=== PATIENT | male | born 1970 | race Caucasian/White ===

== ENCOUNTER 2017-01-06 09:07 | Inpatient (IN) | payer OTHER ==
[2017-01-05 15:30] VITALS: BMI 32.0
[2017-01-06] VITALS (28 sets, daily range): BP systolic 107–147; BP diastolic 58–87; PULSE 73–112; RESP 12–22; Ht 170.2 cm; Wt 88.0 kg
[~2017-01-06] VITALS: Ht 170.2 cm; Wt 88.0 kg
[~2017-01-06 09:07] MED LIST: CEFAZOLIN 1 GM/50 ML (PMX) 50 ML IVPB SCH; metroNIDAZOLE 500 MG/NS (PMX) 100 ML IVPB ONE
[2017-01-06] MEDS ORDERED: LIDOCAINE 2% (SDV) 5 ML INJ ONE (10:57)
[2017-01-06] MEDS ORDERED: PROPOFOL 20 ML ONE (10:57)
[2017-01-06] MEDS ORDERED: morphine SULFATE/PF (10 MG/10 ML) INJ ONE (10:57)
[2017-01-06] MEDS ORDERED: MIDAZOLAM 1 MG/ML 2 ML INJ ONE (11:08)
[2017-01-06] MEDS ORDERED: LIDOCAINE 1% (MDV) 20 ML INJ ONE (11:49)
[2017-01-06] MEDS ORDERED: BUPIVACAINE 0.5%/EPI (SDV) 30 ML INJ INJ ONE (12:08)
[2017-01-06] MEDS ORDERED: THROMBIN 5000 UNIT VIAL ONE (13:16)
[2017-01-06] MEDS ORDERED: DEXAMETHASONE 4 MG/ML 1 ML INJ ONE (13:53)
[2017-01-06] MEDS ORDERED: ONDANSETRON 4 MG INJ ONE (13:53)
[2017-01-06] MEDS ORDERED: NALOXONE (0.4 MG/ML) INJ IV PRN (16:00)
[2017-01-06] MEDS ORDERED: FENTAnyl 50 MCG/ML VIAL IV PRN ×3 (16:00)
[2017-01-06] MEDS ORDERED: HYDROmorphONE (0.2 MG/ML) 10ML SYG IV PRN ×3 (16:00)
[2017-01-06] MEDS ORDERED: EPHEDrine SULFATE 50 MG/5 ML SYG IV PRN (16:00)
[2017-01-06] MEDS ORDERED: ONDANSETRON 4 MG INJ IV PRN ×2 (16:00→17:00)
[2017-01-06] MEDS ORDERED: hydrALAzine 20 MG INJ IV PRN (16:00)
[2017-01-06] MEDS ORDERED: METOCLOPRAMIDE 10 MG INJ IV PRN (16:00)
[2017-01-06] MEDS ORDERED: MEPERIDINE 25 MG INJ IV PRN (16:00)
[2017-01-06] MEDS ORDERED: HYDROmorphONE 1 MG/ML SYG IV PRN ×3 (16:00→17:00)
[2017-01-06] MEDS ORDERED: HYDROCODONE/APAP (5/325) TAB PO PRN (16:00)
[2017-01-06] MEDS ORDERED: DIPHENHYDRAMINE 50 MG INJ IV PRN ×2 (16:00)
[2017-01-06] MEDS ORDERED: LABETALOL HCL 20MG INJ IV PRN (16:00)
--- NOTE | 2017-01-06 16:07 | HPN ---
Date/Time of Note Date/Time of Note DATE: 01/06/17 TIME: 16:07 Interval H&P Admission Note Pt. seen H&P reviewed: No system changes CONRAD TUCKER MD Jan 06, 2017 16:07
[2017-01-06 16:35] LABS: ADD UMIC YES; URINE BILIRUBIN (Dip) NEGATIVE (NEGATIVE); URINE BLOOD (Dip) NEGATIVE (NEGATIVE); URINE COLOR LT. YELLOW (YELLOW); URINE GLUCOSE (Dip) NEGATIVE (NEGATIVE); URINE KETONES (Dip) NEGATIVE (NEGATIVE); URINE LEUKOCYTE ESTERASE (Dip) NEGATIVE (NEGATIVE); URINE NITRITE (Dip) NEGATIVE (NEGATIVE); URINE TOTAL PROTEIN (Dip) 2+ (NEGATIVE); URINE UROBILINOGEN (Dip) 0.2 E.U./dL (0.1-1.0)
--- NOTE | 2017-01-06 16:35 | OPR ---
Date/Time of Note Date/Time of Note DATE: 01/06/17 TIME: 16:13 Operative Report Procedure Date: Jan 06, 2017 Preoperative Diagnosis 1. Hx of open appendectomy 2. Recent microperforation of cecum/?stump appendicitis with abscess Postoperative Diagnosis 1. Hx of open appendectomy 2. Recent microperforation of cecum/?stump appendicitis with abscess with significant inflammation and scarring of distal ileum and cecum Operation Performed 1. Laparoscopic ileo-right colectomy 2. Drainage of abdominal/intra-loop abscess 3. Mobilization of hepatic flexure, laparoscopic 4. Extensive lysis of adhesions, laparoscopic 5. Local anesthetic [place], [id number] 6. Laparoscopic guided transversus abdominis plane block 7. Laparoscopic implantation of xenograft biologic over the anastomosis for improved healing 8. Difficult operation, modifier 22 Surgeon: CONRAD TUCKER MD Bag Worker: Naye FLANAGAN Procedure Description Anesthesia: General, local, & regional Anesthesiologist: Dr. Reeves Estimated Blood Loss: 100 ml's Specimens: Right colon and terminal ileum Tubes/Drains: ACell, 7 x 10 cm, 3 layer Complications: None Pt Condition Post Procedure: stable Disposition: PACU Indications: 46-year-old male with history of open appendectomy years ago. Patient recently was admitted to [place] with abdominal pain and was found to have perforation with abscess at the Cecum, possible stump appendicitis. He was treated with antibiotic and discharged home. He presented to me in the office with this finding and was scheduled for surgical intervention. Risks include but are not limited to bleeding, infection, abscess, seroma, leak , damage to intestines or any intra-abdominal/intrapelvic structures, hernia formation, chronic pain, need for re-operations or further surgeries, GA, stroke , PE, DVT, pneumonia, organ failures, or even . Procedure Description: Patient was brought in, placed supine on the operating table, SCDs were placed, and preoperative antibiotics administered. After induction of anesthesia, all pressure points were well-padded and timeout was performed. Local anesthetic was injected at all surgical sites. Incision was made in the left upper quadrant and using an Optiview 12 mm port and the 5 mm 0 scope abdomen was entered and insufflated to 15 mmHg with CO2. Laparoscopy with a 5 mm 30 scope did not identify any injuries. Under direct visualization 5 mm ports were placed in left lower quadrant and a gel point port in the lower mid abdomen. Laparoscopic bilateral transversus abdominis plane block was performed under laparoscopic visualization to aid with pain control intra-and postoperatively. Patient was placed in Trendelenburg and right side up. There was a peak inflammatory area of small bowel mostly distal ileum to the right colon. There was significant adhesions. It took a very long time to meticulously dissect these however this identified an abscess in between this conglomerate intestines. The abscess was drained and sent for culture. Due to the significant inflammation and possible fistulization between the bowels decision was made to resect the distal ileum and right colon. The right colon was mobilized off of the abdominal wall using scissors with complete hemostasis. They the peritoneum on the medial aspect of the proximal colon and transverse colon was mobilized as well using electrocautery. I was able to mobilize the transverse colon off of the stomach and the liver. The hepatic flexure was taken down using LigaSure as well fully mobilizing the right and transverse colon. The small bowel was transected bilateral foot and 1/2-2 feet proximal to the ileocecal valve and then the right colon was transected and the distal right colon. The mesentery was sequentially taken with LigaSure with care taken to preserve the vessels. The specimen was fully resected and placed in pelvis. The mid ileum was placed [id number] along the distal ascending colon and stay sutures were placed using 2-0 silk sutures. Enterotomies were created in both structures and 2 firings of echelon 60 blue loads were used to create the anastomosis. Crotch stitch was placed 2 using same silk suture. The open end of the anastomosis was stapled using the same echelon stapler. The staple line was reinforced with the 2-0 silk Lembert suture in a running fashion. The mesenteric defect was closed with 2-0 silk in a running fashion. To allow improved healing of the anastomosis, 7 x 10 cm 3 layer ACell, xenograft biologic sheet was placed over the anastomosis. Omentum was pulled over the anastomosis. At the hepatic flexure there was some oozing and FloSeal was placed over the area to control and help with hemostasis. There was complete hemostasis. This specimen was extracted through the gel point port site and sent to pathology. Peritoneum was closed with 3-0 Vicryl suture in a running fashion. The fascia was approximated using multiple #1 Vicryl suture in [id number] interrupted fashion. Subcutaneous tissue was closed in a running fashion with 2-0 Vicryl followed by 4-0 Monocryl subcuticular closure of the skin. Between each layer the wound was fully irrigated and completely hemostatic. Abdomen was re-insufflated was no bleeding and the anastomosis was laying comfortably. Ports and CO2 were removed under direct visualization. Wounds were thoroughly irrigated and skin was closed with 4-0 Monocryl in subcuticular fashion. Dermabond was applied. Patient was extubated and transferred to recovery room in stable condition. All counts were correct and the end of the operation 2. Copies To: CC: ELIANA CUETO MD; ETHAN SABA MD, SAMUEL MD Jan 06, 2017 16:32
[2017-01-06 16:46] LABS: BACTERIA,URINE MODERATE; TRANSITIONAL EPI CELLS,URINE FEW; URINE RBCS 0-2 /HPF (0)
[2017-01-06] MEDS ORDERED: CEFTRIAXONE 1 GM/50 ML (PMX) 50 ML IVPB ONE (17:00)
[2017-01-06] MEDS: metroNIDAZOLE 500 MG/NS (PMX) 100 ML IVPB SCH (18:15)
--- NOTE | 2017-01-06 18:21 | QN ---
Documentation Comment [id number] ETHAN SABA MD Jan 06, 2017 18:21
[2017-01-06] MEDS: D5W-0.45 NACL + KCL 20 MEQ 1,000 ML IV SCH (20:33)
[2017-01-06] MEDS: ONDANSETRON 4 MG INJ IV PRN (22:05)
[2017-01-07 00:14] VITALS: BP 124/71; RESP 18
[2017-01-07] MEDS: metroNIDAZOLE 500 MG/NS (PMX) 100 ML IVPB SCH ×2 (01:02→08:20)
[2017-01-07] MEDS: D5W-0.45 NACL + KCL 20 MEQ 1,000 ML IV SCH ×3 (02:35→16:25)
[2017-01-07] MEDS: PANTOPRAZOLE (EC) 40 MG TAB PO SCH (05:42)
[2017-01-07 06:11] LABS: ADD SCAN DIFF NO
[2017-01-07] MEDS: HYDROCODONE/APAP (5/325) TAB PO PRN ×2 (06:16→20:23)
[2017-01-07] MEDS: ONDANSETRON 4 MG INJ IV PRN (06:17)
[2017-01-07 06:31] LABS: BASOPHILS % 0.1 % (0.0-2.0); HEMATOCRIT 40.9 % (42.0-52.0); LYMPHOCYTES # 1.7 10^3/ul (0.8-2.9); LYMPHOCYTES % 14.4 % (15.0-51.0); MEAN CORPUSCULAR HEMOGLOBIN 30.1 pg (29.0-33.0); MEAN CORPUSCULAR HGB CONC 34.2 g/dl (32.0-37.0); MEAN PLATELET VOLUME 10.7 fl (7.4-10.4); MONOCYTE # 0.8 10^3/ul (0.3-0.9); MONOCYTES % 7.1 % (0.0-11.0); NEUTROPHIL # 9.2 10^3/ul (1.6-7.5); PLATELET COUNT 263 10^3/UL (140-415); RED BLOOD COUNT 4.65 10^6/ul (4.70-6.10); RED CELL DISTRIBUTION WIDTH 11.9 % (11.5-14.5); WHITE BLOOD COUNT 11.8 10^3/ul (4.8-10.8)
[2017-01-07] MEDS: ENOXAPARIN 40 MG/0.4 ML SYG SC SCH (06:39)
[2017-01-07 06:53] LABS: ALBUMIN 3.6 g/dl (3.3-4.9)
[2017-01-07 06:54] LABS: POTASSIUM 4.1 mmol/L (3.5-5.1)
[2017-01-07 06:56] LABS: BILIRUBIN,INDIRECT 0.5 mg/dl (0-1.1); BILIRUBIN,TOTAL 0.5 mg/dl (0.2-1.3); CREATININE 0.77 mg/dl (0.61-1.24); TOTAL PROTEIN 7.2 g/dl (6.1-8.1)
[2017-01-07 06:57] LABS: CALCIUM 8.7 mg/dl (8.4-10.2)
[2017-01-07 07:00] VITALS: BP 108/60; RESP 20
--- NOTE | 2017-01-07 07:00 | CONS ---
DATE OF ADMISSION: 01/06/2017 DATE OF CONSULTATION: 01/06/2017 TYPE OF CONSULTATION: INTERNAL MEDICINE CONSULTATION HISTORY OF PRESENT ILLNESS: The patient with no significant past medical history except the patient has a history of abdominal pain, underwent a history of open appendectomy. The patient has history of recent microperforation of cecum, stump appendicitis with abscess. Underwent laparoscopic right colectomy and drainage of the abdominal and intra-loop abscess, mobilization of the hepatic flexure, extensive lysis of adhesions, local anesthetic injections, laparoscopic guided transvenous abdominal anastomosis improved healing and the patient is being seen post-surgery in the recovery room, is feeling better. PAST MEDICAL HISTORY: . ALLERGY HISTORY: NEGATIVE. FAMILY HISTORY: Negative. SOCIAL HISTORY: Negative. MEDICATIONS AT HOME: The patient was on antibiotic at home. CURRENT: 1. The patient is on Shell. 2. Benadryl. 3. Lovenox. 4. pain meds. 5. Fentanyl. 6. Hydromorphone. 7. Labetalol. 8. Demerol. 9. Reglan. 10. Flagyl. REVIEW OF SYSTEMS: HEENT: Unremarkable. RESPIRATORY: Unremarkable. CARDIOVASCULAR: Unremarkable. ABDOMEN: Complaining of postop pain. EXTREMITIES: Unremarkable. CENTRAL NERVOUS SYSTEM: Unremarkable. PHYSICAL EXAMINATION: GENERAL: The patient is awake, alert. VITAL SIGNS: Stable with pulse of 100, blood pressure /66. HEENT: Head is atraumatic, normocephalic. Pupils equal, reactive. NECK: Supple, no JVD. LUNGS: Clear. CARDIOVASCULAR: S1, S2 normal. ABDOMEN: Soft, tender on palpation. Bowel sounds are absent. EXTREMITIES: No cyanosis, clubbing, edema. CENTRAL NERVOUS SYSTEM: The patient is awake, alert, no focal deficit. LABORATORY DATA: Not available . IMPRESSION: The patient has a laparoscopic _ right colectomy, history of appendectomy. PLAN: Is to follow recommendation from Dr. Wilmar Tucker. Laboratory data will be checked and DVT prophylaxis. The patient will have pain medication, incentive spirometry. Thank you Dr. Tucker for kindly asking me to see this patient in internal medicine consultation. Dictated By: ETHAN SABA MD BS/NTS Conf#: [id number] DID#: [id number] CC: ETHAN SABA MD; CONRAD TUCKER MD;*EndCC* MTDD
[2017-01-07 13:18] LABS: ADD UMIC NO; URINE BILIRUBIN (Dip) NEGATIVE (NEGATIVE); URINE BLOOD (Dip) NEGATIVE (NEGATIVE); URINE COLOR LT. YELLOW (YELLOW); URINE GLUCOSE (Dip) NEGATIVE (NEGATIVE); URINE KETONES (Dip) NEGATIVE (NEGATIVE); URINE LEUKOCYTE ESTERASE (Dip) NEGATIVE (NEGATIVE); URINE NITRITE (Dip) NEGATIVE (NEGATIVE); URINE TOTAL PROTEIN (Dip) NEGATIVE (NEGATIVE); URINE UROBILINOGEN (Dip) 0.2 E.U./dL (0.1-1.0)
--- NOTE | 2017-01-07 14:18 | CONS ---
Date/Time of Note Date/Time of Note DATE: 01/07/17 TIME: 14:16 Assessment/Plan Assessment/Plan Chief Complaint/Hosp Course 1. s/p Laparoscopic ileo-right colectomy 2. s/p Drainage of abdominal/intra-loop abscess Problems: Additional Assessment/Plan 1. Continue a/b 2. Spirometry 3. Pt was up 4. Cont NPO Consultation Date/Type/Reason Admit Date/Time Jan 06, 2017 at 09:07 Initial Consult Date 01/06/2017 Type of Consultation: Nephrology Reason for Consultation Dr Cardoza 24 HR Interval Summary Constitutional: improved Exam/Review of Systems Vital Signs Vitals Vital Signs Date Time Temp Pulse Resp B/P Pulse Ox O2 Delivery O2 Flow Rate FiO2 01/07/17 07:00 98.7 78 20 108/60 97 01/06/17 22:45 Nasal Cannula 01/06/17 16:00 6.0 Intake and Output 01/06/17 01/06/17 01/07/17 15:00 23:00 07:00 Intake Total 2100 ml 1100 ml Output Total 250 ml 800 ml 1000 ml Balance 1850 ml -800 ml 100 ml Exam Constitutional: alert, oriented Eyes: nl conjunctiva Respiratory: clear to auscultation Cardiovascular: regular rate and rhythm Gastrointestinal: soft, surgical scars Genitourinary - Male: nl penis Musculoskeletal: nl extremities to inspection Results Result Diagram: 01/07/17 0454 01/07/17 0459 Results 24 hrs Laboratory Tests Test 01/06/17 15:55 01/07/17 04:54 01/07/17 04:59 01/07/17 06:00 Urine Color LT. YELLOW LT. YELLOW Urine Clarity CLOUDY H CLEAR Urine pH 6.0 5.5 Urine Specific Purdy 1.025 1.020 Urine Ketones NEGATIVE NEGATIVE Urine Nitrite NEGATIVE NEGATIVE Urine Bilirubin NEGATIVE NEGATIVE Urine Urobilinogen 0.2 E.U./dL 0.2 E.U./dL Urine Leukocyte Esterase NEGATIVE NEGATIVE Urine Microscopic RBC 0-2 Urine Microscopic WBC 2-5 Urine Transitional Epithelial Cells FEW Urine Amorphous Urates MANY Urine Bacteria MODERATE Urine Hyaline Casts OCCASIONAL Urine Coarse Granular Casts FEW Urine Hemoglobin NEGATIVE NEGATIVE Urine Glucose NEGATIVE NEGATIVE Urine Total Protein 2+ H NEGATIVE White Blood Count 11.8 H Red Blood Count 4.65 L Hemoglobin 14.0 Hematocrit 40.9 L Mean Corpuscular Volume 88.0 Mean Corpuscular Hemoglobin 30.1 Mean Corpuscular Hemoglobin Concent 34.2 Red Cell Distribution Width 11.9 Platelet Count 263 Mean Platelet Volume 10.7 H Neutrophils % 78.0 H Lymphocytes % 14.4 L Monocytes % 7.1 Eosinophils % 0.0 Basophils % 0.1 Nucleated Red Blood Cells % 0.0 Neutrophils # 9.2 H Lymphocytes # 1.7 Monocytes # 0.8 Eosinophils # 0.0 Basophils # 0.0 Nucleated Red Blood Cells # 0.0 Sodium Level 138 Potassium Level 4.1 Chloride Level 100 Carbon Dioxide Level 26 Anion Gap 16 Blood Urea Nitrogen 13 Creatinine 0.77 Glucose Level 134 Calcium Level 8.7 Total Bilirubin 0.5 Direct Bilirubin 0.00 Indirect Bilirubin 0.5 Aspartate Amino Transf (AST/SGOT) 38 Alanine Aminotransferase (ALT/SGPT) 34 Alkaline Phosphatase 47 Total Protein 7.2 Albumin 3.6 Globulin 3.60 H Albumin/Globulin Ratio 1.00 Medications Medications Current Medications Metronidazole (Flagyl 500 Mg (Pmx)) 100 ml @ 100 mls/hr Q8H IVPB Last administered on 01/07/17 08:20; Admin Dose 100 MLS/HR; Start 01/06/17 at 17:00 ; Stop 01/07/17 at 16:59 Ondansetron HCl (Zofran Inj) 4 mg Q6H PRN IV NAUSEA AND/OR VOMITING; Start at 17:00 Pantoprazole 40 mg 40 mg DAILY@06 PO ; Start 01/07/17 at 06:00 Potassium Chloride/Dextrose/ Sod Cl (D5-1/2ns + KCl 20 Meq) 1,000 ml @ 100 mls/ hr Q10H IV Last administered on 01/07/17 06:01; Admin Dose 100 MLS/HR; Start 01/06/17 at 16:35 Enoxaparin Sodium (Lovenox) 40 mg DAILY@07 SC Last administered on 01/07/17 06 :39; Admin Dose 40 MG; Start 01/07/17 at 07:00 Acetaminophen/ Hydrocodone Bitart ([place] (5/325)) 2 tab Q4H PRN PO Pain 6-10; Start 01/06/17 at 17:00 Acetaminophen/ Hydrocodone Bitart ([place] (5/325)) 1 tab Q4H PRN PO Pain 1-5 Last administered on 01/07/17 06:16; Admin Dose 1 TAB; Start 01/06/17 at 17:00 Hydromorphone HCl (Dilaudid) 0.5 mg Q2 PRN IV Breakthrough PAIN Last administered on 01/07/17 01:02; Admin Dose 0.5 MG; Start 01/06/17 at 17:00 JOHN SURESH Jan 07, 2017 14:18
[2017-01-07 17:28] VITALS: BP 127/63; PULSE 94; RESP 18
--- NOTE | 2017-01-07 17:49 | PN ---
Date/Time of Note Date/Time of Note DATE: 01/07/17 TIME: 17:45 Assessment/Plan Lines/Catheters IV Catheter Type (from [facility]): Peripheral IV [facility] in Place (from [facility]): No Assessment/Plan Chief Complaint/Hosp Course 1. 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 Paralytic ileus -oob/ambulate -chew gum -will start liquids 3. Mild leukocytosis probably reactive -monitor 4. Varicose veins -compression stockings -ambulate Thank you, Problems: Subjective 24 Hr Interval Summary Min pain. No f/c. No n/v. No cp/sob. No cough. No chamberlain/dizzy/visual or neuro changes. No dysuria. Exam/Review of Systems Vital Signs Vitals Vital Signs Date Time Temp Pulse Resp B/P Pulse Ox O2 Delivery O2 Flow Rate FiO2 01/07/17 17:28 99.0 94 18 127/63 95 Room Air 01/06/17 16:00 6.0 Intake and Output 01/06/17 01/06/17 01/07/17 15:00 23:00 07:00 Intake Total 2100 ml 1100 ml Output Total 250 ml 800 ml 1000 ml Balance 1850 ml -800 ml 100 ml Exam Constitutional: alert, oriented, No distress Psych: nl mood/affect, No anxiety Head: atraumatic, normocephalic Eyes: EOMI, PERRL, nl conjunctiva, No icteric ENMT: mucosa pink and moist, nl external ears & nose, nl lips & teeth Neck: non-tender, supple, No jvd Respiratory: normal air movement, No congested cough, No labored breathing Cardiovascular: regular rate and rhythm, No edema Gastrointestinal: soft, tender (min), No rebound or guarding Musculoskeletal: nl extremities to inspection, No joint tenderness Extremities: normal pulses, No calf tenderness, No cyanosis Neurological: nl mental status, nl speech, nl strength Skin: nl turgor, No diaphoresis, No rash or lesions Lymph: nl lymph nodes Results Result Diagram: 01/07/17 0454 01/07/17 0459 CONRAD TUCKER MD Jan 07, 2017 17:48
[2017-01-07 20:19] VITALS: BP 136/70; RESP 19
[2017-01-08] MEDS: HYDROCODONE/APAP (5/325) TAB PO PRN ×4 (00:42→18:14)
[2017-01-08] MEDS: D5W-0.45 NACL + KCL 20 MEQ 1,000 ML IV SCH ×4 (02:10→18:16)
[2017-01-08 05:45] LABS: ADD SCAN DIFF NO
[2017-01-08 06:01] LABS: BASOPHILS % 0.1 % (0.0-2.0); EOSINOPHILS % 0.2 % (0.0-7.0); HEMATOCRIT 39.8 % (42.0-52.0); HEMOGLOBIN 13.7 g/dl (14.0-18.0); LYMPHOCYTES # 1.7 10^3/ul (0.8-2.9); LYMPHOCYTES % 13.3 % (15.0-51.0); MEAN CORPUSCULAR HEMOGLOBIN 30.4 pg (29.0-33.0); MEAN CORPUSCULAR HGB CONC 34.4 g/dl (32.0-37.0); MEAN CORPUSCULAR VOLUME 88.2 fl (82.0-101.0); MEAN PLATELET VOLUME 10.7 fl (7.4-10.4); MONOCYTE # 0.9 10^3/ul (0.3-0.9); MONOCYTES % 6.9 % (0.0-11.0); NEUTROPHIL # 10.2 10^3/ul (1.6-7.5); NEUTROPHILS % 78.7 % (39.0-77.0); PLATELET COUNT 243 10^3/UL (140-415); RED BLOOD COUNT 4.51 10^6/ul (4.70-6.10); RED CELL DISTRIBUTION WIDTH 12.1 % (11.5-14.5)
[2017-01-08] MEDS: PANTOPRAZOLE (EC) 40 MG TAB PO SCH (06:10)
[2017-01-08 06:12] LABS: CALCIUM 8.6 mg/dl (8.4-10.2); CREATININE 0.77 mg/dl (0.61-1.24); POTASSIUM 4.2 mmol/L (3.5-5.1)
[2017-01-08] MEDS: ENOXAPARIN 40 MG/0.4 ML SYG SC SCH (07:34)
[2017-01-08 08:04] VITALS: BP 136/79; RESP 20
[2017-01-08] MEDS: IMIPENEM-CILAST 500MG IV (PMX) 100 ML IVPB SCH ×2 (10:40→18:10)
--- NOTE | 2017-01-08 18:52 | PN ---
Date/Time of Note Date/Time of Note DATE: 01/08/17 TIME: 18:51 Assessment/Plan VTE Prophylaxis VTE Prophylaxis Intervention: other Lines/Catheters IV Catheter Type (from [facility]): Peripheral IV Urinary Cath still in place: No Assessment/Plan Chief Complaint/Hosp Course s/p colon resection esbl wound plan antibiotic Problems: Subjective 24 Hr Interval Summary Gastrointestinal: pain (better) Exam/Review of Systems Vital Signs Vitals Vital Signs Date Time Temp Pulse Resp B/P Pulse Ox O2 Delivery O2 Flow Rate FiO2 01/08/17 08:04 97.8 68 20 136/79 96 01/07/17 17:28 Room Air 01/06/17 16:00 6.0 Intake and Output 01/07/17 01/07/17 01/08/17 15:00 23:00 07:00 Intake Total 100 ml 1150 ml 1300 ml Output Total 400 ml 850 ml Balance -300 ml 300 ml 1300 ml Exam Respiratory: clear to auscultation Cardiovascular: regular rate and rhythm Gastrointestinal: bowel sounds (+), soft Results Result Diagram: 01/08/17 0435 01/08/17 0435 Results 24 hrs Laboratory Tests Test 01/08/17 04:35 White Blood Count 13.0 H Red Blood Count 4.51 L Hemoglobin 13.7 L Hematocrit 39.8 L Mean Corpuscular Volume 88.2 Mean Corpuscular Hemoglobin 30.4 Mean Corpuscular Hemoglobin Concent 34.4 Red Cell Distribution Width 12.1 Platelet Count 243 Mean Platelet Volume 10.7 H Neutrophils % 78.7 H Lymphocytes % 13.3 L Monocytes % 6.9 Eosinophils % 0.2 Basophils % 0.1 Nucleated Red Blood Cells % 0.0 Neutrophils # 10.2 H Lymphocytes # 1.7 Monocytes # 0.9 Eosinophils # 0.0 Basophils # 0.0 Nucleated Red Blood Cells # 0.0 Sodium Level 135 Potassium Level 4.2 Chloride Level 104 Carbon Dioxide Level 28 Anion Gap 7 #L Blood Urea Nitrogen 9 Creatinine 0.77 Glucose Level 128 Calcium Level 8.6 Medications Medications Current Medications Ondansetron HCl (Zofran Inj) 4 mg Q6H PRN IV NAUSEA AND/OR VOMITING; Start at 17:00 Pantoprazole 40 mg 40 mg DAILY@06 PO Last administered on 01/08/17t 06:10; Admin Dose 40 MG; Start 01/07/17 at 06:00 Potassium Chloride/Dextrose/ Sod Cl (D5-1/2ns + KCl 20 Meq) 1,000 ml @ 100 mls/ hr Q10H IV Last administered on 01/08/17 13:05; Admin Dose 100 MLS/HR; Start 01/06/17 at 16:35 Enoxaparin Sodium (Lovenox) 40 mg DAILY@07 SC Last administered on 01/08/17 07 :34; Admin Dose 40 MG; Start 01/07/17 at 07:00 Acetaminophen/ Hydrocodone Bitart (Eva (5/325)) 2 tab Q4H PRN PO Pain 6-10 Last administered on 01/08/17 18:14; Admin Dose 2 TAB; Start 01/06/17 at 17:00 Acetaminophen/ Hydrocodone Bitart (Eva (5/325)) 1 tab Q4H PRN PO Pain 1-5 Last administered on 01/08/17 00:42; Admin Dose 1 TAB; Start 01/06/17 at 17:00 Hydromorphone HCl 0.5 mg 0.5 mg Q2 PRN IV Breakthrough PAIN Last administered on 01/07/17 01:02; Admin Dose 0.5 MG; Start 01/06/17 at 17:00 Imipenem/ Cilastatin Sodium (Primaxin 500 Mg/ 100 ml (Pmx)) 100 ml @ 100 mls/ hr Q6 IVPB Last administered on 01/08/17 18:10; Admin Dose 100 MLS/HR; Start 01/08/17 at 10:00 ETHAN SABA MD Jan 08, 2017 18:52
[2017-01-08 19:20] VITALS: BP 121/67; RESP 19
[2017-01-09] MEDS: IMIPENEM-CILAST 500MG IV (PMX) 100 ML IVPB SCH ×5 (00:32→23:52)
[2017-01-09] MEDS: D5W-0.45 NACL + KCL 20 MEQ 1,000 ML IV SCH ×2 (00:33→14:34)
[2017-01-09 05:27] LABS: ADD SCAN DIFF NO
[2017-01-09 05:36] LABS: BASOPHILS % 0.2 % (0.0-2.0); EOSINOPHILS # 0.1 10^3/ul (0.0-0.5); EOSINOPHILS % 1.4 % (0.0-7.0); HEMATOCRIT 39.5 % (42.0-52.0); HEMOGLOBIN 13.4 g/dl (14.0-18.0); LYMPHOCYTES # 1.3 10^3/ul (0.8-2.9); MEAN CORPUSCULAR HEMOGLOBIN 29.9 pg (29.0-33.0); MEAN CORPUSCULAR HGB CONC 33.9 g/dl (32.0-37.0); MEAN CORPUSCULAR VOLUME 88.2 fl (82.0-101.0); MEAN PLATELET VOLUME 10.6 fl (7.4-10.4); MONOCYTE # 0.7 10^3/ul (0.3-0.9); MONOCYTES % 7.5 % (0.0-11.0); NEUTROPHIL # 7.7 10^3/ul (1.6-7.5); NEUTROPHILS % 77.5 % (39.0-77.0); PLATELET COUNT 242 10^3/UL (140-415); RED BLOOD COUNT 4.48 10^6/ul (4.70-6.10); RED CELL DISTRIBUTION WIDTH 11.9 % (11.5-14.5); WHITE BLOOD COUNT 9.9 10^3/ul (4.8-10.8)
[2017-01-09 06:13] LABS: ALBUMIN 3.5 g/dl (3.3-4.9); ALBUMIN/GLOBULIN RATIO 0.94; BILIRUBIN,INDIRECT 0.8 mg/dl (0-1.1); BILIRUBIN,TOTAL 0.8 mg/dl (0.2-1.3); CALCIUM 8.6 mg/dl (8.4-10.2); CREATININE 0.72 mg/dl (0.61-1.24); POTASSIUM 3.8 mmol/L (3.5-5.1); TOTAL PROTEIN 7.2 g/dl (6.1-8.1)
[2017-01-09] MEDS: PANTOPRAZOLE (EC) 40 MG TAB PO SCH (06:19)
[2017-01-09] MEDS: ENOXAPARIN 40 MG/0.4 ML SYG SC SCH (06:20)
[2017-01-09 08:12] VITALS: BP 120/72; RESP 18
[2017-01-09] MEDS: HYDROCODONE/APAP (5/325) TAB PO PRN ×3 (09:37→22:16)
[2017-01-09 09:38] VITALS: BP 122/74; PULSE 97; RESP 18
--- NOTE | 2017-01-09 09:51 | PN ---
Date/Time of Note Date/Time of Note DATE: 01/08/17 TIME: 19:48 Assessment/Plan Lines/Catheters IV Catheter Type (from [facility]): Peripheral IV [facility] in Place (from [facility]): No Assessment/Plan Chief Complaint/Hosp Course 1. 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 Cx +ESBL -abx per ID -oob/ambulate -IS 2. Paralytic ileus -oob/ambulate -chew gum -will start liquids 3. Mild leukocytosis -monitor -abx per ID for the ESBL in abscess 4. Varicose veins -compression stockings -ambulate Thank you, Late entry 01/08 Problems: Subjective 24 Hr Interval Summary Min pain and does not want to take any pain meds. No f/c. No n/v. No cp/sob. No cough. No chamberlain/dizzy/visual or neuro changes. No dysuria. No bowel function. Exam/Review of Systems Vital Signs Vitals Vital Signs Date Time Temp Pulse Resp B/P Pulse Ox O2 Delivery O2 Flow Rate FiO2 01/09/17 09:38 97.9 97 18 122/74 Room Air 01/09/17 08:12 92 01/06/17 16:00 6.0 Intake and Output 01/08/17 01/08/17 01/09/17 15:00 23:00 07:00 Intake Total 600 ml 800 ml 1050 ml Balance 600 ml 800 ml 1050 ml Exam Free Text/Dictation Constitutional: alert, oriented, No distress Psych: nl mood/affect, No anxiety Head: atraumatic, normocephalic Eyes: EOMI, PERRL, nl conjunctiva, No icteric ENMT: mucosa pink and moist, nl external ears & nose, nl lips & teeth Neck: non-tender, supple, No jvd Respiratory: normal air movement, No congested cough, No labored breathing Cardiovascular: regular rate and rhythm, No edema Gastrointestinal: soft, tender (min), No rebound or guarding Musculoskeletal: nl extremities to inspection, No joint tenderness Extremities: normal pulses, No calf tenderness, No cyanosis Neurological: nl mental status, nl speech, nl strength Skin: nl turgor, No diaphoresis, No rash or lesions Lymph: nl lymph nodes Results Result Diagram: 01/09/17 0425 01/09/17 0425 CONRAD TUCKER MD January 09, 2017 09:51
--- NOTE | 2017-01-09 09:53 | PN ---
Date/Time of Note Date/Time of Note DATE: 01/09/17 TIME: 09:51 Assessment/Plan Lines/Catheters IV C[facility]ter Type (from [facility]): Peripheral IV [facility] in Place (from [facility]): No Assessment/Plan Chief Complaint/Hosp Course 1. 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 Cx +ESBL -abx per ID -oob/ambulate -IS 2. Paralytic ileus, improved -oob/ambulate -chew gum -will start liquids today 3. Mild leukocytosis -monitor -abx per ID for the ESBL in abscess 4. Varicose veins -compression stockings -ambulate Thank you, Problems: Subjective 24 Hr Interval Summary BM and flatus this morning. Min pain and still refusing pain meds. No f/c. No vomiting but some nausea. No cp/sob. No cough. No chamberlain/dizzy/visual or neuro changes. No dysuria. Exam/Review of Systems Vital Signs Vitals Vital Signs Date Time Temp Pulse Resp B/P Pulse Ox O2 Delivery O2 Flow Rate FiO2 01/09/17 09:38 97.9 97 18 122/74 Room Air 01/09/17 08:12 92 01/06/17 16:00 6.0 Intake and Output 01/08/17 01/08/17 01/09/17 15:00 23:00 07:00 Intake Total 600 ml 800 ml 1050 ml Balance 600 ml 800 ml 1050 ml Exam Free Text/Dictation Constitutional: alert, oriented, No distress Psych: nl mood/affect, No anxiety Head: atraumatic, normocephalic Eyes: EOMI, PERRL, nl conjunctiva, No icteric ENMT: mucosa pink and moist, nl external ears & nose, nl lips & teeth Neck: non-tender, supple, No jvd Respiratory: normal air movement, No congested cough, No labored breathing Cardiovascular: regular rate and rhythm, No edema Gastrointestinal: soft, tender (min), No rebound or guarding Musculoskeletal: nl extremities to inspection, No joint tenderness Extremities: normal pulses, No calf tenderness, No cyanosis Neurological: nl mental status, nl speech, nl strength Skin: nl turgor, No diaphoresis, No rash or lesions Lymph: nl lymph nodes Results Result Diagram: 01/09/17 0425 01/09/17 0425 CONRAD TUCKER MD January 09, 2017 09:53
--- NOTE | 2017-01-09 18:04 | PN ---
Date/Time of Note Date/Time of Note DATE: 01/09/17 TIME: 18:03 Assessment/Plan VTE Prophylaxis VTE Prophylaxis Intervention: other Lines/Catheters IV Catheter Type (from [facility]): Peripheral IV Urinary Cath still in place: No Assessment/Plan Chief Complaint/Hosp Course s/p colon resection esbl wound plan antibiotic ck labs Problems: Subjective 24 Hr Interval Summary Gastrointestinal: no complaints Exam/Review of Systems Vital Signs Vitals Vital Signs Date Time Temp Pulse Resp B/P Pulse Ox O2 Delivery O2 Flow Rate FiO2 01/09/17 09:38 97.9 97 18 122/74 Room Air 01/09/17 08:12 92 01/06/17 16:00 6.0 Intake and Output 01/08/17 01/08/17 01/09/17 15:00 23:00 07:00 Intake Total 600 ml 800 ml 1050 ml Balance 600 ml 800 ml 1050 ml Exam Respiratory: clear to auscultation Cardiovascular: regular rate and rhythm Gastrointestinal: soft Musculoskeletal: nl extremities to inspection Extremities: normal pulses Results Result Diagram: 01/09/17 0425 01/09/17 0425 Results 24 hrs Laboratory Tests Test 01/09/17 04:25 White Blood Count 9.9 # Red Blood Count 4.48 L Hemoglobin 13.4 L Hematocrit 39.5 L Mean Corpuscular Volume 88.2 Mean Corpuscular Hemoglobin 29.9 Mean Corpuscular Hemoglobin Concent 33.9 Red Cell Distribution Width 11.9 Platelet Count 242 Mean Platelet Volume 10.6 H Neutrophils % 77.5 H Lymphocytes % 13.0 L Monocytes % 7.5 Eosinophils % 1.4 Basophils % 0.2 Nucleated Red Blood Cells % 0.0 Neutrophils # 7.7 H Lymphocytes # 1.3 Monocytes # 0.7 Eosinophils # 0.1 Basophils # 0.0 Nucleated Red Blood Cells # 0.0 Sodium Level 134 L Potassium Level 3.8 Chloride Level 101 Carbon Dioxide Level 26 Anion Gap 11 Blood Urea Nitrogen 8 Creatinine 0.72 Glucose Level 141 Calcium Level 8.6 Total Bilirubin 0.8 Direct Bilirubin 0.00 Indirect Bilirubin 0.8 Aspartate Amino Transf (AST/SGOT) 29 Alanine Aminotransferase (ALT/SGPT) 25 Alkaline Phosphatase 86 # Total Protein 7.2 Albumin 3.5 Globulin 3.70 H Albumin/Globulin Ratio 0.94 Medications Medications Current Medications Ondansetron HCl (Zofran Inj) 4 mg Q6H PRN IV NAUSEA AND/OR VOMITING; Start at 17:00 Pantoprazole 40 mg 40 mg DAILY@06 PO Last administered on 01/09/17 06:19; Admin Dose 40 MG; Start 01/07/17 at 06:00 Potassium Chloride/Dextrose/ Sod Cl (D5-1/2ns + KCl 20 Meq) 1,000 ml @ 100 mls/ hr Q10H IV Last administered on 01/09/17 14:34; Admin Dose 100 MLS/HR; Start at 16:35 Enoxaparin Sodium (Lovenox) 40 mg DAILY@07 SC Last administered on 01/09/17 06: 20; Admin Dose 40 MG; Start 01/07/17 at 07:00 Acetaminophen/ Hydrocodone Bitart ([place] (5/325)) 2 tab Q4H PRN PO Pain 6-10 Last administered on 01/09/17 14:38; Admin Dose 2 TAB; Start 01/06/17 at 17:00 Acetaminophen/ Hydrocodone Bitart ([place] (5/325)) 1 tab Q4H PRN PO Pain 1-5 Last administered on 01/08/17 00:42; Admin Dose 1 TAB; Start 01/06/17 at 17:00 Hydromorphone HCl 0.5 mg 0.5 mg Q2 PRN IV Breakthrough PAIN Last administered on 01/07/17 01:02; Admin Dose 0.5 MG; Start 01/06/17 at 17:00 Imipenem/ Cilastatin Sodium (Primaxin 500 Mg/ 100 ml (Pmx)) 100 ml @ 100 mls/ hr Q6 IVPB Last administered on 01/09/17 11:49; Admin Dose 100 MLS/HR; Start at 10:00 ETHAN SABA MD January 09, 2017 18:04
[2017-01-09 19:30] VITALS: BP 122/72; RESP 20
[2017-01-10] MEDS: D5W-0.45 NACL + KCL 20 MEQ 1,000 ML IV SCH ×3 (01:43→20:35)
[2017-01-10] MEDS: HYDROCODONE/APAP (5/325) TAB PO PRN ×3 (05:15→21:36)
[2017-01-10 05:37] LABS: ADD SCAN DIFF NO
[2017-01-10 05:44] LABS: BASOPHILS % 0.3 % (0.0-2.0); EOSINOPHILS # 0.3 10^3/ul (0.0-0.5); EOSINOPHILS % 4.6 % (0.0-7.0); HEMATOCRIT 37.7 % (42.0-52.0); HEMOGLOBIN 12.8 g/dl (14.0-18.0); LYMPHOCYTES # 1.4 10^3/ul (0.8-2.9); LYMPHOCYTES % 18.9 % (15.0-51.0); MEAN CORPUSCULAR HEMOGLOBIN 29.7 pg (29.0-33.0); MEAN CORPUSCULAR VOLUME 87.5 fl (82.0-101.0); MEAN PLATELET VOLUME 10.6 fl (7.4-10.4); MONOCYTE # 0.7 10^3/ul (0.3-0.9); NEUTROPHIL # 4.9 10^3/ul (1.6-7.5); NEUTROPHILS % 67.1 % (39.0-77.0); PLATELET COUNT 257 10^3/UL (140-415); RED BLOOD COUNT 4.31 10^6/ul (4.70-6.10); WHITE BLOOD COUNT 7.3 10^3/ul (4.8-10.8)
[2017-01-10] MEDS: IMIPENEM-CILAST 500MG IV (PMX) 100 ML IVPB SCH ×3 (06:18→17:51)
[2017-01-10] MEDS: ENOXAPARIN 40 MG/0.4 ML SYG SC SCH (06:18)
[2017-01-10] MEDS: PANTOPRAZOLE (EC) 40 MG TAB PO SCH (06:18)
[2017-01-10 06:38] LABS: POTASSIUM 3.7 mmol/L (3.5-5.1)
[2017-01-10 06:41] LABS: CREATININE 0.62 mg/dl (0.61-1.24)
[2017-01-10 06:42] LABS: CALCIUM 8.4 mg/dl (8.4-10.2)
[2017-01-10 08:35] VITALS: BP 131/75; RESP 18
[2017-01-10] MEDS ORDERED: POLYETHYLENE GLYCOL 17 GM PACKET PO PRN (15:30)
--- NOTE | 2017-01-10 16:34 | PN ---
Date/Time of Note Date/Time of Note DATE: 01/10/17 TIME: 16:32 Assessment/Plan Lines/Catheters IV Catheter Type (from [facility]): Peripheral IV [place] in Place (from [facility]): No Assessment/Plan Chief Complaint/Hosp Course 1. 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 Cx +ESBL -abx per ID -oob/ambulate -IS 2. Paralytic ileus, improved -oob/ambulate -diet as tolerate 3. Mild leukocytosis resolved -monitor -abx per ID for the ESBL in abscess 4. Varicose veins -compression stockings -ambulate Thank you, Problems: Subjective 24 Hr Interval Summary Flatus and BMs. Min pain. No f/c. No vomiting but some nausea. No cp/sob. No cough. No chamberlain/dizzy/visual or neuro changes. No dysuria. Exam/Review of Systems Vital Signs Vitals Vital Signs Date Time Temp Pulse Resp B/P Pulse Ox O2 Delivery O2 Flow Rate FiO2 01/10/17 08:35 98.2 93 18 131/75 98 01/09/17 09:38 Room Air 01/06/17 16:00 6.0 Intake and Output 01/09/17 01/09/17 01/10/17 15:00 23:00 07:00 Intake Total 1100 ml 1820 ml Output Total 400 ml 800 ml Balance 700 ml 1020 ml Exam Free Text/Dictation Constitutional: alert, oriented, No distress Psych: nl mood/affect, No anxiety Head: atraumatic, normocephalic Eyes: EOMI, PERRL, nl conjunctiva, No icteric ENMT: mucosa pink and moist, nl external ears & nose, nl lips & teeth Neck: non-tender, supple, No jvd Respiratory: normal air movement, No congested cough, No labored breathing Cardiovascular: regular rate and rhythm, No edema Gastrointestinal: soft, tender (min), No rebound or guarding Musculoskeletal: nl extremities to inspection, No joint tenderness Extremities: normal pulses, No calf tenderness, No cyanosis Neurological: nl mental status, nl speech, nl strength Skin: nl turgor, No diaphoresis, No rash or lesions Lymph: nl lymph nodes Results Result Diagram: 01/10/175 01/10/17424 CONRAD TUCKER MD January 10, 2017 16:34
[2017-01-10 19:45] VITALS: BP 131/76; RESP 18
--- NOTE | 2017-01-10 23:10 | PN ---
Date/Time of Note Date/Time of Note DATE: 01/10/17 TIME: 23:09 Assessment/Plan VTE Prophylaxis VTE Prophylaxis Intervention: other Lines/Catheters IV Catheter Type (from [facility]): Peripheral IV Urinary Cath still in place: No Assessment/Plan Chief Complaint/Hosp Course s/p colon resection esbl wound plan antibiotic home soon Problems: Subjective 24 Hr Interval Summary Cardiovascular: no complaints Gastrointestinal: constipation, no complaints, No diarrhea Exam/Review of Systems Vital Signs Vitals Vital Signs Date Time Temp Pulse Resp B/P Pulse Ox O2 Delivery O2 Flow Rate FiO2 01/10/17 19:45 99.1 73 18 131/76 97 01/09/17 09:38 Room Air 01/06/17 16:00 6.0 Intake and Output 01/09/17 01/09/17 01/10/17 15:00 23:00 07:00 Intake Total 1100 ml 1820 ml Output Total 400 ml 800 ml Balance 700 ml 1020 ml Exam Respiratory: clear to auscultation Cardiovascular: regular rate and rhythm Gastrointestinal: soft Musculoskeletal: nl extremities to inspection Results Result Diagram: 01/10/17 0425 01/10/17 0425 Results 24 hrs Laboratory Tests Test 01/10/17 04:25 White Blood Count 7.3 # Red Blood Count 4.31 L Hemoglobin 12.8 L Hematocrit 37.7 L Mean Corpuscular Volume 87.5 Mean Corpuscular Hemoglobin 29.7 Mean Corpuscular Hemoglobin Concent 34.0 Red Cell Distribution Width 12.0 Platelet Count 257 Mean Platelet Volume 10.6 H Neutrophils % 67.1 Lymphocytes % 18.9 Monocytes % 9.0 Eosinophils % 4.6 Basophils % 0.3 Nucleated Red Blood Cells % 0.0 Neutrophils # 4.9 Lymphocytes # 1.4 Monocytes # 0.7 Eosinophils # 0.3 Basophils # 0.0 Nucleated Red Blood Cells # 0.0 Sodium Level 138 Potassium Level 3.7 Chloride Level 103 Carbon Dioxide Level 24 Anion Gap 15 Blood Urea Nitrogen 7 Creatinine 0.62 Glucose Level 121 Calcium Level 8.4 Medications Medications Current Medications Ondansetron HCl (Zofran Inj) 4 mg Q6H PRN IV NAUSEA AND/OR VOMITING; Start at 17:00 Pantoprazole 40 mg 40 mg DAILY@06 PO Last administered on 01/10/17t 06:18; Admin Dose 40 MG; Start 01/07/17 at 06:00 Potassium Chloride/Dextrose/ Sod Cl (D5-1/2ns + KCl 20 Meq) 1,000 ml @ 100 mls/ hr Q10H IV Last administered on 01/10/17 11:50; Admin Dose 100 MLS/HR; Start at 16:35 Enoxaparin Sodium (Lovenox) 40 mg DAILY@07 SC Last administered on 01/10/17 06: 18; Admin Dose 40 MG; Start 01/07/17 at 07:00 Acetaminophen/ Hydrocodone Bitart ([place] (5/325)) 2 tab Q4H PRN PO Pain 6-10 Last administered on 01/09/17 14:38; Admin Dose 2 TAB; Start 01/06/17 at 17:00 Acetaminophen/ Hydrocodone Bitart ([place] (5/325)) 1 tab Q4H PRN PO Pain 1-5 Last administered on 01/10/17 21:36; Admin Dose 1 TAB; Start 01/06/17 at 17:00 Hydromorphone HCl 0.5 mg 0.5 mg Q2 PRN IV Breakthrough PAIN Last administered on 01/07/17 01:02; Admin Dose 0.5 MG; Start 01/06/17 at 17:00 Imipenem/ Cilastatin Sodium (Primaxin 500 Mg/ 100 ml (Pmx)) 100 ml @ 100 mls/ hr Q6 IVPB Last administered on 01/10/17 17:51; Admin Dose 100 MLS/HR; Start at 10:00 Simethicone (Mylicon) 80 mg TID PRN PO DISTENSION/GAS/BLOATING Last administered on 01/10/17 16:07; Admin Dose 80 MG; Start 01/10/17 at 15:30 Polyethylene Glycol (Miralax) 17 gm DAILY PRN PO CONSTIPATION Last administered on 01/10/17 16:07; Admin Dose 17 GM; Start 01/10/17 at 15:30 ETHAN SABA MD January 10, 2017 23:10
[2017-01-11] MEDS: D5W-0.45 NACL + KCL 20 MEQ 1,000 ML IV SCH ×2 (00:11→15:34)
[2017-01-11] MEDS: IMIPENEM-CILAST 500MG IV (PMX) 100 ML IVPB SCH ×4 (00:11→17:23)
[2017-01-11] MEDS: PANTOPRAZOLE (EC) 40 MG TAB PO SCH (06:28)
[2017-01-11] MEDS: ENOXAPARIN 40 MG/0.4 ML SYG SC SCH (06:28)
[2017-01-11 07:31] VITALS: BP 125/80; RESP 20
[2017-01-11 19:00] VITALS: BP 121/71; RESP 18
--- NOTE | 2017-01-11 21:01 | PN ---
Date/Time of Note Date/Time of Note DATE: 01/11/17 TIME: 21:00 Assessment/Plan VTE Prophylaxis VTE Prophylaxis Intervention: other Lines/Catheters IV Catheter Type (from Nrs): Peripheral IV Urinary Cath still in place: No Assessment/Plan Chief Complaint/Hosp Course s/p colon resection esbl wound plan antibiotic IV Problems: Subjective 24 Hr Interval Summary Cardiovascular: no complaints Gastrointestinal: no complaints, pain (BETTER), No nausea Exam/Review of Systems Vital Signs Vitals Vital Signs Date Time Temp Pulse Resp B/P Pulse Ox O2 Delivery O2 Flow Rate FiO2 01/11/17 19:00 98.1 71 18 121/71 97 01/09/17 09:38 Room Air Intake and Output 01/10/17 01/10/17 01/11/17 15:00 23:00 07:00 Intake Total 200 ml 1700 ml 1800 ml Balance 200 ml 1700 ml 1800 ml Exam Neck: supple Respiratory: clear to auscultation Cardiovascular: regular rate and rhythm Gastrointestinal: soft Musculoskeletal: nl extremities to inspection Extremities: normal pulses Results Result Diagram: 01/10/17 0425 01/10/17 0425 Medications Medications Current Medications Ondansetron HCl (Zofran Inj) 4 mg Q6H PRN IV NAUSEA AND/OR VOMITING; Start at 17:00 Pantoprazole 40 mg 40 mg DAILY@06 PO Last administered on 01/11/17 06:28; Admin Dose 40 MG; Start 01/07/17 at 06:00 Potassium Chloride/Dextrose/ Sod Cl (D5-1/2ns + KCl 20 Meq) 1,000 ml @ 100 mls/ hr Q10H IV Last administered on 01/11/17 15:34; Admin Dose 100 MLS/HR; Start at 16:35 Enoxaparin Sodium (Lovenox) 40 mg DAILY@07 SC Last administered on 01/11/17 06: 28; Admin Dose 40 MG; Start 01/07/17 at 07:00 Acetaminophen/ Hydrocodone Bitart ([place] (5/325)) 2 tab Q4H PRN PO Pain 6-10 Last administered on 01/09/17 14:38; Admin Dose 2 TAB; Start 01/06/17 at 17:00 Acetaminophen/ Hydrocodone Bitart ([place] (5/325)) 1 tab Q4H PRN PO Pain 1-5 Last administered on 01/10/17 21:36; Admin Dose 1 TAB; Start 01/06/17 at 17:00 Hydromorphone HCl 0.5 mg 0.5 mg Q2 PRN IV Breakthrough PAIN Last administered on 01/07/17 01:02; Admin Dose 0.5 MG; Start 01/06/17 at 17:00 Imipenem/ Cilastatin Sodium (Primaxin 500 Mg/ 100 ml (Pmx)) 100 ml @ 100 mls/ hr Q6 IVPB Last administered on 01/11/17 17:23; Admin Dose 100 MLS/HR; Start at 10:00; Stop 01/11/17 at 23:45 Simethicone (Mylicon) 80 mg TID PRN PO DISTENSION/GAS/BLOATING Last administered on 01/10/17 16:07; Admin Dose 80 MG; Start 01/10/17 at 15:30 Polyethylene Glycol 17 gm 17 gm DAILY PRN PO CONSTIPATION Last administered on 01/10/17 16:07; Admin Dose 17 GM; Start 01/10/17 at 15:30 Meropenem (Merrem 1 Gm/100 ml (Pmx)) 100 ml @ 200 mls/hr Q8 IVPB ; Start at 06:00 ETHAN SABA MD January 11, 2017 21:01
[2017-01-12] MEDS: MEROPENEM 1 GM/100 ML (PMX) 100 ML IVPB SCH ×3 (06:25→21:35)
[2017-01-12] MEDS: PANTOPRAZOLE (EC) 40 MG TAB PO SCH (06:25)
[2017-01-12] MEDS: ENOXAPARIN 40 MG/0.4 ML SYG SC SCH (06:31)
[2017-01-12 08:07] VITALS: BP 129/80; RESP 20
[2017-01-12] MEDS: D5W-0.45 NACL + KCL 20 MEQ 1,000 ML IV SCH (11:36)
[2017-01-12] MEDS ORDERED: LIDOCAINE 1% (MPF) 5 ML VIAL SC ONE ×2 (14:00→14:30)
[2017-01-12 16:07] VITALS: BP 123/65; PULSE 69; RESP 18
--- NOTE | 2017-01-12 17:47 | PN ---
Date/Time of Note Date/Time of Note DATE: 01/12/17 TIME: 17:46 Assessment/Plan VTE Prophylaxis VTE Prophylaxis Intervention: other Lines/Catheters IV [facility]ter Type (from [facility]): Peripheral IV Urinary Cath still in place: No Assessment/Plan Chief Complaint/Hosp Course s/p colon resection esbl wound plan antibiotic IV picc line home health Problems: Subjective 24 Hr Interval Summary Cardiovascular: no complaints Gastrointestinal: no complaints Exam/Review of Systems Vital Signs Vitals Vital Signs Date Time Temp Pulse Resp B/P Pulse Ox O2 Delivery O2 Flow Rate FiO2 01/12/17 16:07 97.5 69 18 123/65 97 Room Air Intake and Output 01/11/17 01/11/17 01/12/17 15:00 23:00 07:00 Intake Total 100 ml 580 ml 450 ml Balance 100 ml 580 ml 450 ml Exam Respiratory: clear to auscultation Cardiovascular: regular rate and rhythm Gastrointestinal: soft Musculoskeletal: nl extremities to inspection Results Result Diagram: 01/10/17 0425 01/10/17 0425 Medications Medications Current Medications Ondansetron HCl (Zofran Inj) 4 mg Q6H PRN IV NAUSEA AND/OR VOMITING; Start at 17:00 Pantoprazole 40 mg 40 mg DAILY@06 PO Last administered on 01/12/17 06:25; Admin Dose 40 MG; Start 01/07/17 at 06:00 Potassium Chloride/Dextrose/ Sod Cl (D5-1/2ns + KCl 20 Meq) 1,000 ml @ 40 mls/ hr Q24H IV Last administered on 01/12/17 11:36; Admin Dose 100 MLS/HR; Start at 16:35 Enoxaparin Sodium (Lovenox) 40 mg DAILY@07 SC Last administered on 01/12/17 06: 31; Admin Dose 40 MG; Start 01/07/17 at 07:00 Acetaminophen/ Hydrocodone Bitart ([place] (5/325)) 2 tab Q4H PRN PO Pain 6-10 Last administered on 01/09/17 14:38; Admin Dose 2 TAB; Start 01/06/17 at 17:00 Acetaminophen/ Hydrocodone Bitart ([place] (5/325)) 1 tab Q4H PRN PO Pain 1-5 Last administered on 01/10/17 21:36; Admin Dose 1 TAB; Start 01/06/17 at 17:00 Hydromorphone HCl (Dilaudid) 0.5 mg Q2 PRN IV Breakthrough PAIN Last administered on 01/07/17 01:02; Admin Dose 0.5 MG; Start 01/06/17 at 17:00 Simethicone (Mylicon) 80 mg TID PRN PO DISTENSION/GAS/BLOATING Last administered on 01/10/17 16:07; Admin Dose 80 MG; Start 01/10/17 at 15:30 Polyethylene Glycol 17 gm 17 gm DAILY PRN PO CONSTIPATION Last administered on 01/10/17 16:07; Admin Dose 17 GM; Start 01/10/17 at 15:30 Meropenem (Merrem 1 Gm/100 ml (Pmx)) 100 ml @ 200 mls/hr Q8 IVPB Last administered on 01/12/17 14:39; Admin Dose 200 MLS/HR; Start 01/12/17 at 06:00 ETHAN SABA MD January 12, 2017 17:47
--- NOTE | 2017-01-12 18:25 | RADRPT ---
PROCEDURE: XR Chest. CLINICAL INDICATION: PICC line placement. TECHNIQUE: Single frontal chest x-ray. COMPARISON: None. FINDINGS: There is a right PICC line with tip in the SVC. Heart is normal size.. There is no congestive hear t failure.. Mild bibasilar plate-like atelectasis.. There is no pleural effusion. There is no pneu mothorax. The osseous structures are unremarkable. IMPRESSION: Right PICC line with tip in the SVC. Bibasilar plate-like atelectasis. RPTAT: HMVK .Floyd De Jesus MD, Date Time Electronically viewed and signed by .Floyd De Jesus MD, on 01/12/2017 18:25 .K/
[2017-01-12 19:00] VITALS: BP 128/78; RESP 18
--- NOTE | 2017-01-12 22:31 | RADRPT ---
PROCEDURE: US guidance for PICC line CLINICAL INDICATION: PICC line placement TECHNIQUE: Multiple real-time images were acquired of the patient's arm utilizing a high resolutio n transducer. This was performed by the PICC line nurse for venous access. COMPARISON: None FINDINGS: Ultrasound guidance for PICC line placement. IMPRESSION: Ultrasound guidance for PICC line placement. RPTAT: AA .Clemente Paz MD, MD Date Time Electronically viewed and signed by .Clemente Paz MD, on 01/12/2017 22:30 .S/
--- NOTE | 2017-01-13 00:53 | PN ---
Date/Time of Note Date/Time of Note DATE: 01/11/17 TIME: 22:51 Assessment/Plan Lines/Catheters IV Catheter Type (from Nrs): PICC Line Mall[place] in Place (from Nrs): No Assessment/Plan Chief Complaint/Hosp Course 1. 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 Cx +ESBL -abx per ID -oob/ambulate -IS 2. Paralytic ileus, improved -oob/ambulate -diet as tolerate 3. Mild leukocytosis resolved -monitor -abx per ID for the ESBL in abscess 4. Varicose veins -compression stockings -ambulate Thank you, Latte entry 01/11 Problems: Subjective 24 Hr Interval Summary Flatus and BMs. Min pain. No f/c. No vomiting but some nausea. No cp/sob. No cough. No chamberlain/dizzy/visual or neuro changes. No dysuria. Exam/Review of Systems Vital Signs Vitals Vital Signs Date Time Temp Pulse Resp B/P Pulse Ox O2 Delivery O2 Flow Rate FiO2 01/12/17 19:00 98.4 78 18 128/78 97 01/12/17 16:07 Room Air Intake and Output 01/12/17 01/12/17 01/13/17 15:00 23:00 07:00 Intake Total 500 ml 1300 ml Output Total 900 ml Balance 500 ml 400 ml Exam Free Text/Dictation Constitutional: alert, oriented, No distress Psych: nl mood/affect, No anxiety Head: atraumatic, normocephalic Eyes: EOMI, PERRL, nl conjunctiva, No icteric ENMT: mucosa pink and moist, nl external ears & nose, nl lips & teeth Neck: non-tender, supple, No jvd Respiratory: normal air movement, No congested cough, No labored breathing Cardiovascular: regular rate and rhythm, No edema Gastrointestinal: soft, tender (min), No rebound or guarding Musculoskeletal: nl extremities to inspection, No joint tenderness Extremities: normal pulses, No calf tenderness, No cyanosis Neurological: nl mental status, nl speech, nl strength Skin: nl turgor, No diaphoresis, No rash or lesions Lymph: nl lymph nodes Results Result Diagram: 01/10/17 0425 01/10/17 0425 CONRAD TUCKER MD January 13, 2017 00:53
--- NOTE | 2017-01-13 00:54 | PN ---
Date/Time of Note Date/Time of Note DATE: 01/12/17 TIME: 20:53 Assessment/Plan Lines/Catheters IV Catheter Type (from Nrs): PICC Line [place] in Place (from Nrs): No Assessment/Plan Chief Complaint/Hosp Course 1. 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 Cx +ESBL -abx per ID -oob/ambulate -IS 2. Paralytic ileus, improved -oob/ambulate -diet as tolerate 3. Mild leukocytosis resolved -monitor -abx per ID for the ESBL in abscess 4. Varicose veins -compression stockings -ambulate Thank you, Latte entry 01/12 Problems: Subjective 24 Hr Interval Summary Flatus and BMs. Min pain. No f/c. No vomiting but some nausea. No cp/sob. No cough. No chamberlain/dizzy/visual or neuro changes. No dysuria. Exam/Review of Systems Vital Signs Vitals Vital Signs Date Time Temp Pulse Resp B/P Pulse Ox O2 Delivery O2 Flow Rate FiO2 01/12/17 19:00 98.4 78 18 128/78 97 01/12/17 16:07 Room Air Intake and Output 01/12/17 01/12/17 01/13/17 15:00 23:00 07:00 Intake Total 500 ml 1300 ml Output Total 900 ml Balance 500 ml 400 ml Exam Free Text/Dictation Constitutional: alert, oriented, No distress Psych: nl mood/affect, No anxiety Head: atraumatic, normocephalic Eyes: EOMI, PERRL, nl conjunctiva, No icteric ENMT: mucosa pink and moist, nl external ears & nose, nl lips & teeth Neck: non-tender, supple, No jvd Respiratory: normal air movement, No congested cough, No labored breathing Cardiovascular: regular rate and rhythm, No edema Gastrointestinal: soft, tender (min), No rebound or guarding Musculoskeletal: nl extremities to inspection, No joint tenderness Extremities: normal pulses, No calf tenderness, No cyanosis Neurological: nl mental status, nl speech, nl strength Skin: nl turgor, No diaphoresis, No rash or lesions Lymph: nl lymph nodes Results Result Diagram: 01/10/17 0425 01/10/17 0425 CONRAD TUCKER MD January 13, 2017 00:54
[2017-01-13 05:49] LABS: ADD SCAN DIFF NO
[2017-01-13 05:53] LABS: BASOPHILS % 0.3 % (0.0-2.0); EOSINOPHILS # 0.3 10^3/ul (0.0-0.5); EOSINOPHILS % 3.5 % (0.0-7.0); HEMATOCRIT 39.6 % (42.0-52.0); HEMOGLOBIN 13.5 g/dl (14.0-18.0); LYMPHOCYTES # 2.1 10^3/ul (0.8-2.9); LYMPHOCYTES % 30.3 % (15.0-51.0); MEAN CORPUSCULAR HEMOGLOBIN 29.6 pg (29.0-33.0); MEAN CORPUSCULAR HGB CONC 34.1 g/dl (32.0-37.0); MEAN CORPUSCULAR VOLUME 86.8 fl (82.0-101.0); MEAN PLATELET VOLUME 9.8 fl (7.4-10.4); MONOCYTE # 0.6 10^3/ul (0.3-0.9); MONOCYTES % 7.9 % (0.0-11.0); NEUTROPHIL # 4.1 10^3/ul (1.6-7.5); NEUTROPHILS % 57.7 % (39.0-77.0); PLATELET COUNT 341 10^3/UL (140-415); RED BLOOD COUNT 4.56 10^6/ul (4.70-6.10); RED CELL DISTRIBUTION WIDTH 11.7 % (11.5-14.5); WHITE BLOOD COUNT 7.1 10^3/ul (4.8-10.8)
[2017-01-13 06:05] LABS: ALBUMIN 3.5 g/dl (3.3-4.9)
[2017-01-13 06:06] LABS: POTASSIUM 3.9 mmol/L (3.5-5.1)
[2017-01-13 06:08] LABS: ALBUMIN/GLOBULIN RATIO 0.87; BILIRUBIN,INDIRECT 0.2 mg/dl (0-1.1); BILIRUBIN,TOTAL 0.2 mg/dl (0.2-1.3); CREATININE 0.67 mg/dl (0.61-1.24); TOTAL PROTEIN 7.5 g/dl (6.1-8.1)
[2017-01-13 06:09] LABS: CALCIUM 8.9 mg/dl (8.4-10.2)
[2017-01-13] MEDS: MEROPENEM 1 GM/100 ML (PMX) 100 ML IVPB SCH ×3 (06:09→19:13)
[2017-01-13] MEDS: PANTOPRAZOLE (EC) 40 MG TAB PO SCH (06:09)
[2017-01-13] MEDS: ENOXAPARIN 40 MG/0.4 ML SYG SC SCH (07:19)
[2017-01-13 08:00] VITALS: BP 136/74; RESP 20
[2017-01-13] MEDS ORDERED: SOD CHLORIDE 0.9% 100 ML ONE (08:54)
--- NOTE | 2017-01-13 10:02 | CONS ---
Date/Time of Note Date/Time of Note DATE: 01/13/17 TIME: 10:01 Assessment/Plan Assessment/Plan Chief Complaint/Hosp Course s/p colon resection esbl wound Problems: Additional Assessment/Plan plan antibiotic IV picc line home health Consultation Date/Type/Reason Admit Date/Time Jan 06, 2017 at 09:07 Initial Consult Date 01/06/2017 Type of Consultation: Nephrology Reason for Consultation Dr Cardoza Exam/Review of Systems Vital Signs Vitals Vital Signs Date Time Temp Pulse Resp B/P Pulse Ox O2 Delivery O2 Flow Rate FiO2 01/13/17 08:00 98.7 64 20 136/74 96 01/12/17 16:07 Room Air Intake and Output 01/12/17 01/12/17 01/13/17 15:00 23:00 07:00 Intake Total 500 ml 1300 ml 1700 ml Output Total 900 ml Balance 500 ml 400 ml 1700 ml Exam Constitutional: alert, oriented Psych: no complaints Head: normocephalic ENMT: nl external ears & nose Neck: supple Respiratory: clear to auscultation Cardiovascular: regular rate and rhythm Gastrointestinal: soft, surgical scars Genitourinary - Male: nl penis Results Result Diagram: 01/13/17 0429 01/13/17 0424 Results 24 hrs Laboratory Tests Test 01/13/17 04:24 01/13/17 04:29 Sodium Level 139 Potassium Level 3.9 Chloride Level 102 Carbon Dioxide Level 25 Anion Gap 16 Blood Urea Nitrogen 11 Creatinine 0.67 Glucose Level 96 Calcium Level 8.9 Total Bilirubin 0.2 Direct Bilirubin 0.00 Indirect Bilirubin 0.2 Aspartate Amino Transf (AST/SGOT) 46 Alanine Aminotransferase (ALT/SGPT) 38 Alkaline Phosphatase 78 Total Protein 7.5 Albumin 3.5 Globulin 4.00 H Albumin/Globulin Ratio 0.87 White Blood Count 7.1 Red Blood Count 4.56 L Hemoglobin 13.5 L Hematocrit 39.6 L Mean Corpuscular Volume 86.8 Mean Corpuscular Hemoglobin 29.6 Mean Corpuscular Hemoglobin Concent 34.1 Red Cell Distribution Width 11.7 Platelet Count 341 # Mean Platelet Volume 9.8 Neutrophils % 57.7 Lymphocytes % 30.3 Monocytes % 7.9 Eosinophils % 3.5 Basophils % 0.3 Nucleated Red Blood Cells % 0.0 Neutrophils # 4.1 Lymphocytes # 2.1 Monocytes # 0.6 Eosinophils # 0.3 Basophils # 0.0 Nucleated Red Blood Cells # 0.0 Medications Medications Current Medications Ondansetron HCl (Zofran Inj) 4 mg Q6H PRN IV NAUSEA AND/OR VOMITING; Start at 17:00 Pantoprazole 40 mg 40 mg DAILY@06 PO Last administered on 01/13/17 06:09; Admin Dose 40 MG; Start 01/07/17 at 06:00 Potassium Chloride/Dextrose/ Sod Cl (D5-1/2ns + KCl 20 Meq) 1,000 ml @ 40 mls/ hr Q24H IV Last administered on 01/12/17 11:36; Admin Dose 100 MLS/HR; Start at 16:35 Enoxaparin Sodium (Lovenox) 40 mg DAILY@07 SC Last administered on 01/13/17 07: 19; Admin Dose 40 MG; Start 01/07/17 at 07:00 Acetaminophen/ Hydrocodone Bitart ([place] (5/325)) 2 tab Q4H PRN PO Pain 6-10 Last administered on 01/09/17 14:38; Admin Dose 2 TAB; Start 01/06/17 at 17:00 Acetaminophen/ Hydrocodone Bitart ([place] (5/325)) 1 tab Q4H PRN PO Pain 1-5 Last administered on 01/10/17 21:36; Admin Dose 1 TAB; Start 01/06/17 at 17:00 Hydromorphone HCl (Dilaudid) 0.5 mg Q2 PRN IV Breakthrough PAIN Last administered on 01/07/17 01:02; Admin Dose 0.5 MG; Start 01/06/17 at 17:00 Simethicone (Mylicon) 80 mg TID PRN PO DISTENSION/GAS/BLOATING Last administered on 01/10/17 16:07; Admin Dose 80 MG; Start 01/10/17 at 15:30 Polyethylene Glycol 17 gm 17 gm DAILY PRN PO CONSTIPATION Last administered on 01/10/17 16:07; Admin Dose 17 GM; Start 01/10/17 at 15:30 Meropenem ([place]rem 1 Gm/100 ml (Pmx)) 100 ml @ 200 mls/hr Q8 IVPB Last administered on 01/13/17 06:09; Admin Dose 200 MLS/HR; Start 01/12/17 at 06:00 IV Flush (NS 10 ml) 10 ml PRN PRN IV IV PROTOCOL; Start 01/12/17 at 19:30 JOHN SURESH January 13, 2017 10:02
[2017-01-13] MEDS: D5W-0.45 NACL + KCL 20 MEQ 1,000 ML IV SCH ×2 (13:12→14:13)
--- NOTE | 2017-01-13 14:38 | PDOCDIS ---
Discharge Instructions CONDITION Patient Condition: Stable HOME CARE INSTRUCTIONS: Special Diet: SOFT ACTIVITY: Activity Restrictions: Slowly Increase Activity Rest between Activity Avoid heavy lifting Avoid Heavy Housework Bathing Restrictions: Shower FOLLOW UP/APPOINTMENTS Appointments F/U PCP 1 [facility],SEE DR TUCKER 1 W[facility] ETHAN SABA MD January 13, 2017 14:38
[2017-01-13] MEDS ORDERED: MYL80 PO (14:39)
--- NOTE | 2017-01-13 15:51 | PN ---
Date/Time of Note Date/Time of Note DATE: 01/13/17 TIME: 15:51 Assessment/Plan Lines/Catheters IV Catheter Type (from Nrs): PICC Line Malloy in Place (from Nrs): No Assessment/Plan Chief Complaint/Hosp Course 1. 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 Cx +ESBL -abx per ID -oob/ambulate -IS 2. Paralytic ileus, improved -oob/ambulate -diet as tolerate 3. Mild leukocytosis resolved -monitor -abx per ID for the ESBL in abscess 4. Varicose veins -compression stockings -ambulate Thank you, Problems: Subjective 24 Hr Interval Summary Flatus and BMs. Min pain. No f/c. No vomiting but some nausea. No cp/sob. No cough. No chamberlain/dizzy/visual or neuro changes. No dysuria. Exam/Review of Systems Vital Signs Vitals Vital Signs Date Time Temp Pulse Resp B/P Pulse Ox O2 Delivery O2 Flow Rate FiO2 01/13/17 08:00 98.7 64 20 136/74 96 01/12/17 16:07 Room Air Intake and Output 01/12/17 01/12/17 01/13/17 15:00 23:00 07:00 Intake Total 500 ml 1300 ml 1700 ml Output Total 900 ml Balance 500 ml 400 ml 1700 ml Exam Free Text/Dictation Constitutional: alert, oriented, No distress Psych: nl mood/affect, No anxiety Head: atraumatic, normocephalic Eyes: EOMI, PERRL, nl conjunctiva, No icteric ENMT: mucosa pink and moist, nl external ears & nose, nl lips & teeth Neck: non-tender, supple, No jvd Respiratory: normal air movement, No congested cough, No labored breathing Cardiovascular: regular rate and rhythm, No edema Gastrointestinal: soft, tender (min), No rebound or guarding Musculoskeletal: nl extremities to inspection, No joint tenderness Extremities: normal pulses, No calf tenderness, No cyanosis Neurological: nl mental status, nl speech, nl strength Skin: nl turgor, No diaphoresis, No rash or lesions Lymph: nl lymph nodes Results Result Diagram: 01/13/17 0429 01/13/17 0424 CONRAD TUCKER MD January 13, 2017 15:51
[2017-01-13 20:11] VITALS: BP 125/73; RESP 20
--- NOTE | 2017-01-15 16:16 | QN ---
Documentation Comment [id number] ETHAN SABA MD January 15, 2017 16:16
--- NOTE | 2017-01-15 19:10 | DS ---
DATE OF ADMISSION: 01/06/2017 DATE OF DISCHARGE: 01/13/2017 HOSPITAL COURSE: The patient was admitted with a history of abdominal pain. The patient has laparo scopic right colectomy, history of appendectomy. Postop, patient noted to have ESBL E. coli. Start ed on IV antibiotic. The patient also required pain medication, bowel care. The patient to have ho me antibiotic at home. The patient is being discharged home. DISCHARGE DIAGNOSES: 1. Status post colon resection. 2. History of appendectomy. 3. Extended-spectrum beta-lactamase wound. DISCHARGE MEDICATIONS: Include: 1. The patient to continue on simethicone. 2. A prescription for IV antibiotic has been arranged. 3. The patient to continue on meropenem at home. DISCHARGE CONDITION: The patient is stable at the time of discharge. FOLLOWUP: The patient to follow up with PCP, Dr. Kathrin Clemons, and Dr. Wilmar Tucker as an outpatient. Dictated By: ETHAN SABA MD BS/NTS Conf#: [id number] DID#: [id number] CC: CONRAD TUCKER MD;*EndCC*
== END 2017-01-13 20:20 | disposition home health service (06) | DRG 330 ==
LOC: REC 09:07 → MS1 19:55
PROVIDERS: ADMIT Surgery; ATTEND Surgery
PROC: 0DNE4ZZ Release Large Intestine, Percutaneous Endoscopic Approach (ICD-10-PCS; 2017-01-06)
PROC: 0DUE4KZ Supplement Large Intestine with Nonautologous Tissue Substitute, Percutaneous Endoscopic Approach (ICD-10-PCS; 2017-01-06)
PROC: 0DTF4ZZ Resection of Right Large Intestine, Percutaneous Endoscopic Approach (ICD-10-PCS; principal; 2017-01-06 10:00)
PROC: 02HV33Z Insertion of Infusion Device into Superior Vena Cava, Percutaneous Approach (ICD-10-PCS; 2017-01-12)
DX: K63.1 Perforation of intestine (nontraumatic) (principal); K63.0 Abscess of intestine; K56.0 Paralytic ileus; Z90.49 Acquired absence of other specified parts of digestive tract; D72.829 Elevated white blood cell count, unspecified; I83.90 Asymptomatic varicose veins of unspecified lower extremity; B96.20 Unspecified Escherichia coli [E. coli] as the cause of diseases classified elsewhere; Z16.12 Extended spectrum beta lactamase (ESBL) resistance
CPT/HCPCS: 36569; 71010; 76937; 80048; 80053; 81001; 81003; 85025; 87070; 87086; J0696; J0743; J1100; J1170; J1650; J2185; J2250; J2274; J2405; J3010; J3480; Q4166